=== PATIENT | female | born 1940 | race Caucasian/White ===

== ENCOUNTER → 2016-07-03 | Outpatient (CLI) | payer MEDICARE, BC ==
[2016-07-03 10:31] VITALS: BP 128/86; PULSE 68; RESP 20; TEMP 97.6; BMI 36.8
--- NOTE | 2016-07-03 14:08 | XR ---
"Abdomen HISTORY: Pain Correlation to prior esophagram July Lap band is showing a similar orientation with a transverse orientation. There is no pneumoperitoneum or bowel obstruction evident. Bone mineralization is reduced. Lung bases are clear. Postop change no fortino in the right lower quadrant. IMPRESSION: Transverse orientation of the lap band, correlate for symptomatology, possible lap band d isplacement. A Yellow message has been communicated to Corie Cook MD via the Vascular Closure | Critical Re sult system on 07/03/2016 2:05 PM, Message ID [id number]."
--- NOTE | 2016-07-03 14:13 | XR ---
EXAMINATION TYPE: XR chest 1V DATE OF EXAM: 07/03/2016 11:40 AM COMPARISON: Abdomen same date HISTORY: Pain TECHNIQUE: Single frontal view of the chest is obtained. FINDINGS: Lap band shows a transverse orientation. Patient is rotated. No pneumonia, pneumothorax, o r pleural effusion. Linear area of increased density in the right mid lung laterally may reflect atel ectasis or scar. Bone mineralization is reduced. IMPRESSION: Probable atelectasis or scar, follow-up to assess for stability versus resolution.
--- NOTE | 2016-07-08 10:02 | P.PN ---
Progress Note - Text Spoke with patient regarding results of Xrays and band/port malposition. Patient complains of pain from her band and port. Benefits and risks described of options of band revision and removal. Patient wishes to proceed with removal of band and all components. She will hold her coumadin today as she is also following closely with her poultry sexer.
--- NOTE | 2016-07-13 20:32 | P.PN ---
Progress Note - Text DATE OF CONSULTATION: 07/03/2016. CHIEF COMPLAINT: Bariatric assessment. HISTORY OF PRESENT ILLNESS: Marci Nunes is a 76-year-old female who actually comes in having an adjustable gastric band. Her family including had her band placed in 2009. At her height of 5 feet 3 inches, her ideal body weight is 140 pounds. She had weighed as much as 237 pounds. Her lowest weight with the band was 180 pounds. She has maintained a 30 pound weight loss. Current weight of 207 pounds. However, she has gained 18 pounds in the last 2 to 3 years. She now presents for assessment of her port. Separately she reports that she does not drink much fluids at all. Her foods includes for dinner she had coffee, toast and raisin bran. For lunch she had sandwiches. She denies any troubles with swallowing. Again her last band fill was one year ago where 8+ mL was fluid in her band. She was recently placed on Zoloft. She is taking Pepcid. Separately, she also came off her Coumadin and amiodarone for underlying, heart arrhythmia. She reports pain from her port site at its location underneath her ribs. She also reports moderate decrease of her height from 5 foot 6 to 5 foot 3 from kyphosis of the spine which also makes it difficult for her port location. PAST MEDICAL HISTORY: 1. Osteoporosis. 2. Cardiomyopathy. 3. Cardiac arrhythmia. 4. Hypertension. 5. Gastroesophageal reflux disease. 6. Vitamin D deficiency. 7. Atrial fibrillation. PAST SURGICAL HISTORY: 1. Appendectomy. 2. Placement adjustable gastric band. MEDICATIONS: 1. Coumadin. 2. Zoloft. 3. Klor-Con. 4. Multivitamin. 5. Lopressor. 6. Zestoretic. 7. Pepcid. 8. Vitamin D. 9. Calcium. 10. Aspirin. 11. Amiodarone. ALLERGIES: Denies. SOCIAL HISTORY: She is with her at bedside. No recent tobacco use. FAMILY HISTORY: History of morbid obesity throughout including with her daughters. REVIEW OF ORGAN SYSTEMS: CONSTITUTIONAL: Highest weight of 237 pounds, 5 foot 3 frame. Her ideal body weight of 140 pounds. Lowest weight of 180 pounds. She has already gained 18 pounds. Total maintained weight loss of 30 pounds. Body mass index reduced from 42 down to 36.8. BMI point reduction is only 5. Percent excess weight loss is only 31%. Weight of 207 pounds. HEENT: No troubles with hearing, troubles with vision. No reports of dysphagia. ENDOCRINE: No reports of thyroid disorders or blood sugar, glucose intolerance. Lymphatics denies any lumps or bumps around the neck. CARDIOVASCULAR: History of cardiac arrhythmia, atrial fibrillation for which she is pending ablation. No recent chest pain. RESPIRATORY: No reports of dyspnea on exertion. Denies any acute or active sleep apnea. GASTROINTESTINAL: Denies any gastroesophageal reflux disease. However, her symptoms were controlled using Pepcid. She does report pain from her port site of the left upper quadrant. MUSCULOSKELETAL: No clubbing, cyanosis or edema. NEUROLOGICAL: Cranial nerves II through XII grossly intact. PSYCH: Appropriate affect. Alert and oriented to person, place, and time. PHYSICAL EXAM: VITAL SIGNS: 97.6, 16, 21, 120/86, 5 foot 3 and 207 pounds, body mass index of 36.8. Body mass index is 36.8. GENERAL: Well-developed, pleasant female, no acute distress. HEENT: No scleral icterus. Extraocular movements grossly intact. Moist buccal mucosa. NECK: Supple without lymphadenopathy. CHEST: Nonlabored respirations. Equal bilateral excursions. CARDIOVASCULAR: Regular rate and rhythm. ABDOMEN: Soft with tenderness noted along the port site of the left upper quadrant. No erythema or skin changes. MUSCULOSKELETAL: No clubbing, cyanosis, or edema. NEURO: No focal or lateralizing signs. Cranial nerves II through XII grossly within normal limits. PSYCH: Appropriate affect. BACK: Spinal kyphosis moderate identified. ASSESSMENT: 1. Morbid obesity due to excess calories. 2. Body mass index reduced from 42 down to 36.8. 3. History of adjustable gastric band. 4. Complications from adjustable gastric band port. 5. Left upper quadrant abdominal pain. 6. History of atrial fibrillation. 7. Dietary surveillance and counseling. PLAN: 1. I have gone over her dietary eating habits which is moderate carbohydrates with minimal protein. 2. She reports poor oral intake of fluids or even water which puts her at risk for dehydration. 3. With her weight gain, recommend adjustment of her band. 4. Recommend evaluation with bariatric dietitian including re-education of lap band diet. I have gone over with her that fluids should not be drank within 30 minutes before and after meals to minimize risk for washout of her pouch to which she demonstrated understanding. 5. Options of band adjustments and/or port repositioning was reviewed for which she has elected for reposition of her band port upon evaluation with her railroad car cleaning supervisor. PROCEDURE: Adjustment of gastric band. DESCRIPTION: After verbal consent was obtained, the patient was placed supine. Using ChloraPrep the left upper quadrant port site was cleansed. The skin was localized with 1 mL of 1% Xylocaine. Using a 20-gauge non-coring Lewis needle, the actual port was found almost directly underneath the left costal margin of the rib which makes it difficult for at least 2 separate passes of the port. Port was not successfully cannulated. Given location of the port including tenderness along the rib cage, the patient elected for reposition of her band port at a later time.
== END | disposition home or self-care (01) ==
LOC: BARWHC3 09:29
PROVIDERS: ATTEND Surgery Plastic and Reconstructive Surgery
DX: Z48.815 Encounter for surgical aftercare following surgery on the digestive system (principal); Z98.84 Bariatric surgery status; Z68.36 Body mass index [BMI] 36.0-36.9, adult; T85.598A Other mechanical complication of other gastrointestinal prosthetic devices, implants and grafts, initial encounter; R10.12 Left upper quadrant pain; I48.91 Unspecified atrial fibrillation; M40.299 Other kyphosis, site unspecified; Z79.899 Other long term (current) drug therapy
CPT/HCPCS: 71010; 74000; G0463; 99202

== ENCOUNTER 2016-07-14 13:20 | Inpatient (IN) | payer MEDICARE, BC ==
--- NOTE | 2016-07-14 06:53 | P.GSHP ---
History of Present Illness H&P Date: 07/14/16 DATE OF CONSULTATION: 07/03/2016. CHIEF COMPLAINT: Bariatric assessment. HISTORY OF PRESENT ILLNESS: Marci Nunes is a 76-year-old female who actually comes in having an adjustable gastric band. Her family including had her band placed in 2009. At her height of 5 feet 3 inches, her ideal body weight is 140 pounds. She had weighed as much as 237 pounds. Her lowest weight with the band was 180 pounds. She has maintained a 30 pound weight loss. Current weight of 207 pounds. However, she has gained 18 pounds in the last 2 to 3 years. She now presents for assessment of her port. Separately she reports that she does not drink much fluids at all. Her foods includes for dinner she had coffee, toast and raisin bran. For lunch she had sandwiches. She denies any troubles with swallowing. Again her last band fill was one year ago where 8+ mL was fluid in her band. She was recently placed on Zoloft. She is taking Pepcid. Separately, she also came off her Coumadin and amiodarone for underlying, heart arrhythmia. She reports pain from her port site at its location underneath her ribs. She also reports moderate decrease of her height from 5 foot 6 to 5 foot 3 from kyphosis of the spine which also makes it difficult for her port location. PAST MEDICAL HISTORY: 1. Osteoporosis. 2. Cardiomyopathy. 3. Cardiac arrhythmia. 4. Hypertension. 5. Gastroesophageal reflux disease. 6. Vitamin D deficiency. 7. Atrial fibrillation. PAST SURGICAL HISTORY: 1. Appendectomy. 2. Placement adjustable gastric band. MEDICATIONS: 1. Coumadin. 2. Zoloft. 3. Klor-Con. 4. Multivitamin. 5. Lopressor. 6. Zestoretic. 7. Pepcid. 8. Vitamin D. 9. Calcium. 10. Aspirin. 11. Amiodarone. ALLERGIES: Denies. SOCIAL HISTORY: She is with her at bedside. No recent tobacco use. FAMILY HISTORY: History of morbid obesity throughout including with her daughters. REVIEW OF ORGAN SYSTEMS: CONSTITUTIONAL: Highest weight of 237 pounds, 5 foot 3 frame. Her ideal body weight of 140 pounds. Lowest weight of 180 pounds. She has already gained 18 pounds. Total maintained weight loss of 30 pounds. Body mass index reduced from 42 down to 36.8. BMI point reduction is only 5. Percent excess weight loss is only 31%. Weight of 207 pounds. HEENT: No troubles with hearing, troubles with vision. No reports of dysphagia. ENDOCRINE: No reports of thyroid disorders or blood sugar, glucose intolerance. Lymphatics denies any lumps or bumps around the neck. CARDIOVASCULAR: History of cardiac arrhythmia, atrial fibrillation for which she is pending ablation. No recent chest pain. RESPIRATORY: No reports of dyspnea on exertion. Denies any acute or active sleep apnea. GASTROINTESTINAL: Denies any gastroesophageal reflux disease. However, her symptoms were controlled using Pepcid. She does report pain from her port site of the left upper quadrant. MUSCULOSKELETAL: No clubbing, cyanosis or edema. NEUROLOGICAL: Cranial nerves II through XII grossly intact. PSYCH: Appropriate affect. Alert and oriented to person, place, and time. PHYSICAL EXAM: VITAL SIGNS: 97.6, 16, 21, 120/86, 5 foot 3 and 207 pounds, body mass index of 36.8. Body mass index is 36.8. GENERAL: Well-developed, pleasant female, no acute distress. HEENT: No scleral icterus. Extraocular movements grossly intact. Moist buccal mucosa. NECK: Supple without lymphadenopathy. CHEST: Nonlabored respirations. Equal bilateral excursions. CARDIOVASCULAR: Regular rate and rhythm. ABDOMEN: Soft with tenderness noted along the port site of the left upper quadrant. No erythema or skin changes. MUSCULOSKELETAL: No clubbing, cyanosis, or edema. NEURO: No focal or lateralizing signs. Cranial nerves II through XII grossly within normal limits. PSYCH: Appropriate affect. BACK: Spinal kyphosis moderate identified. ASSESSMENT: 1. Morbid obesity due to excess calories. 2. Body mass index reduced from 42 down to 36.8. 3. History of adjustable gastric band. 4. Complications from adjustable gastric band port. 5. Left upper quadrant abdominal pain. 6. History of atrial fibrillation. 7. Dietary surveillance and counseling. PLAN: 1. I have gone over her dietary eating habits which is moderate carbohydrates with minimal protein. 2. She reports poor oral intake of fluids or even water which puts her at risk for dehydration. 3. With her weight gain, recommend adjustment of her band. 4. Recommend evaluation with bariatric dietitian including re-education of lap band diet. I have gone over with her that fluids should not be drank within 30 minutes before and after meals to minimize risk for washout of her pouch to which she demonstrated understanding. 5. Options of band adjustments and/or port repositioning was reviewed for which she has elected for reposition of her band port upon evaluation with her cushion former. ADDENDUM: I spoke with patient regarding results of Xrays and band/port malposition. Patient complains of pain from her band and port. Benefits and risks described of options of band revision and removal. Patient wishes to proceed with removal of band and all components. She has held coumadin and followed closely with her cushion former. Past Medical History Past Medical History: Atrial Fibrillation History of Any Multi-Drug Resistant Organisms: None Reported Past Surgical History: Appendectomy, Bariatric Surgery, Heart Catheterization, Orthopedic Surgery Additional Past Surgical History / Comment(s): LAP BAND, CARDIOVERSION, ARTHROSCOPY KNEE, EFREN CARPAL TUNNEL, TRIGGER FINGER, LEFT BREAST BX, D&C Past Anesthesia/Blood Transfusion Reactions: No Reported Reaction Past Psychological History: No Psychological Hx Reported Smoking Status: Never smoker Past Alcohol Use History: None Reported Past Drug Use History: None Reported - Past Family History Son(s) Family Medical History: Deep Vein Thrombosis (DVT) Medications and Allergies Home Medications Medication Instructions Recorded Confirmed Type Amiodarone [Cordarone] 100 mg PO HS 07/02/16 07/09/16 History Aspirin 81 mg PO DAILY 07/02/16 07/09/16 History Calcium Citrate 250 mg PO DAILY 07/02/16 07/09/16 History Cholecalciferol [Vitamin D3] 1,000 unit PO DAILY 07/02/16 07/09/16 History Famotidine [Pepcid] 20 mg PO DAILY 07/02/16 07/09/16 History Lisinopril-Hctz 20-12.5 mg 1 tab PO DAILY 07/02/16 07/09/16 History [Zestoretic 20-12.5] Metoprolol Tartrate [Lopressor] 50 mg PO QAM 07/02/16 07/09/16 History Multivitamins, Thera [Multivitamin] 1 tab PO DAILY 07/02/16 07/09/16 History Potassium Chloride [Klor-Con 10 meq PO DAILY 07/02/16 07/09/16 History Sprinkle] Warfarin [Coumadin] 5 mg PO DAILY 07/02/16 07/09/16 History Metoprolol Tartrate [Lopressor] 25 mg PO HS 07/09/16 07/09/16 History Allergies Allergy/AdvReac Type Severity Reaction Status Date / Time No Known Allergies Allergy Verified 07/09/16 14:50
[~2016-07-14 13:20] MED LIST: HEPARIN SODIUM,PORCINE 5,000 UNIT/ML 1 ML VIAL SQ ONE; HYDROmorphone 1 MG/ML 1 ML SYRINGE IVP PRN; MIDAZOLAM 2 MG/2 ML VIAL IV PRN; ONDANSETRON 4 MG/2 ML VIAL IVP ONE; ceFAZolin 2 GM in SODIUM CHLORIDE 0.9% 100 ML IVPB ONE
[2016-07-14 13:50] VITALS: RESP 16
[2016-07-14] MEDS: LACTATED RINGERS 1,000 ML IV SCH (14:07)
[2016-07-14] MEDS ORDERED: HEPARIN SODIUM,PORCINE 5,000 UNIT/ML 1 ML VIAL SQ ONE (14:08)
[2016-07-14] MEDS ORDERED: LIDOCAINE 1% 20 ML VIAL (10MG/ML) FOR IV START INTRADERMA ONE (14:08)
[2016-07-14 14:25] LABS: Basophils % (A) 1 %; CH 33.8; CHCM 34.2; Eosinophils # (A) 0.1 k/uL (0-0.7); Eosinophils % (A) 2 %; HCT 43.8 % (34.0-46.0); HDW 2.51; HGB 14.7 gm/dL (11.4-16.0); Luc # (Auto) 0.09; Luc % (Auto) 2; Lymphocytes # (A) 1.2 k/uL (1.0-4.8); Lymphocytes % (A) 24 %; MCH 33.4 pg (25.0-35.0); MCHC 33.5 g/dL (31.0-37.0); MCV 99.5 fL (80.0-100.0); Mean Platelet Volume 8.1; Monocytes # (A) 0.4 k/uL (0-1.0); Monocytes % (A) 9 %; Neutrophils # (A) 3.1 k/uL (1.3-7.7); Neutrophils % (A) 63 %; RDW 14.1 % (11.5-15.5); WBC 4.9 k/uL (3.8-10.6)
[2016-07-14 14:29] LABS: INR 1.3 (<1.1); Prothrombin Time 12.4 sec (9.0-12.0)
[2016-07-14 14:36] LABS: Anion Gap 13 mmol/L; Blood Urea Nitrogen 20 mg/dL (7-17); Calcium 9.6 mg/dL (8.4-10.2); Carbon Dioxide 24 mmol/L (22-30); Chloride 106 mmol/L (98-107); Glucose 106 mg/dL (74-99); Non-African American GFR(MDRD) 50 (>60 ml/min/1.73 sqM); Potassium 4.3 mmol/L (3.5-5.1); Sodium 143 mmol/L (137-145)
[2016-07-14] MEDS ORDERED: ACETAMINOPHEN IV (For NPO) 1,000 MG in EMPTY BAG 1 BAG IVPB ONE (15:00)
[2016-07-14] MEDS: BUPIVACAINE LIPOSOME/PF 1.3% 20 ML, BUPIVACAIN-EPI 0.5%-1:200,000 25 ML, SODIUM CHLORID... MISCELLANE ONE ×6 (15:22→15:57)
[2016-07-14] MEDS ORDERED: SUCCINYLCHOLINE CHLORIDE 100 MG/5 ML SYR IV ONE (15:29)
[2016-07-14] MEDS ORDERED: ePHEDrine 50 MG/ML 1 ML AMP ONE (15:29)
[2016-07-14] MEDS ORDERED: GLYCOPYRROLATE 0.2 MG/ML 2 ML VIAL ONE (15:29)
[2016-07-14] MEDS ORDERED: fentaNYL (PF) 50 MCG/ML 2 ML AMP ONE (15:29)
[2016-07-14] MEDS ORDERED: MIDAZOLAM 2 MG/2 ML VIAL ONE (15:29)
[2016-07-14] MEDS ORDERED: NEOSTIGMINE 1 MG/ML 10 ML VIAL ONE (15:29)
[2016-07-14] MEDS ORDERED: HYDROmorphone (PF) 1 MG/ML ONE (15:29)
[2016-07-14] MEDS ORDERED: PHENYLEPHRINE-0.9% NACL SYG 1 MG/10 ML SYRINGE ONE (15:29)
[2016-07-14] MEDS ORDERED: PROPOFOL 10 MG/ML 20 ML VIAL IV ONE (15:29)
[2016-07-14] MEDS ORDERED: LIDOCAINE 1% INJ 10MG/ML (20 ML MDV) ONE (15:29)
[2016-07-14] MEDS ORDERED: VECURONIUM 10 MG VIAL IV ONE (15:29)
[2016-07-14] MEDS ORDERED: LACTATED RINGERS 1,000 ML IV ONE (16:04)
[2016-07-14] MEDS ORDERED: ONDANSETRON 4 MG/2 ML VIAL IVP PRN (16:55)
[2016-07-14] MEDS ORDERED: HYDROcodone/APAP 15 ML SOLUTION PO PRN (16:55)
[2016-07-14] MEDS ORDERED: NALOXONE 0.4 MG/ML 1 ML VIAL IV PRN (16:55)
[2016-07-14] MEDS ORDERED: HYDROmorphone 1 MG/ML 1 ML SYRINGE IVP PRN (16:55)
--- NOTE | 2016-07-14 16:55 | P.OP ---
Date of Procedure: 07/14/16 Description of Procedure: SURGEON: NGA HUTCHINSON MD CELL INSTALLER: NONE. PREOPERATIVE DIAGNOSES: 1. Morbid obesity due to excess calories. 2. Body mass index reduced from 42 down to 36.8. 3. History of adjustable gastric band. 4. Complications from adjustable gastric band port. 5. Left upper quadrant abdominal pain. 6. History of atrial fibrillation. 7. Dietary surveillance and counseling. 8. Gastric port malposition. 9. Gastric band malposition. POSTOPERATIVE DIAGNOSES: 1. Morbid obesity due to excess calories. 2. Body mass index reduced from 42 down to 36.8. 3. History of adjustable gastric band. 4. Complications from adjustable gastric band port. 5. Left upper quadrant abdominal pain. 6. History of atrial fibrillation. 7. Dietary surveillance and counseling. 8. Gastric port malposition. 9. Gastric band malposition. 10. Posterior gastric prolapse of gastric band. 11. Adjustable gastric band port malfunction with early fracture and malfunction of adjustable gastric band port. 12. Gastritis, superficial. OPERATION: 1. Laparoscopic removal of adjustable gastric band and all components. 2. Intraoperative esophagogastroduodenoscopy with cold forceps biopsies along antrum. 3. Placement of quarter inch [place] drain along port extraction site. ANESTHESIA: General with 85 mL Exparel Sensorcaine with epinephrine and normal saline mixture. ESTIMATED BLOOD LOSS: 20 mL SPECIMENS REMOVED: Adjustable gastric band and components. COMPLICATIONS: None. INDICATIONS: The patient is a 76-year-old female who presents with prior history of adjustable gastric band. She reports left upper quadrant abdominal pain from her adjustable gastric port site with persistent rubbing along the left rib. She had studies including abdominal x-ray demonstrating acute change in angulation of her band as well as she was symptomatic. 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 Surgical options were described including revision versus removal of her band. As she has persistent pain and discomfort from her band, she had elected for removal of the adjustable gastric band and port including all components. Benefits and risks of the procedure were described. Informed consent was obtained. DESCRIPTION: The patient was brought into the operating room and laid in supine position. Preoperatively she had received Peridex oral solution. Shad also gotten heparin. Patient was brought into the operating room, transferred a split-leg table. After general induction, which was uncomplicated, the abdomen was prepped and draped in standard sterile fashion. The abdomen was prepped and draped in standard sterile fashion using ChloraPrep as well as Ioban draping. Prior to incision, a timeout protocol was confirmed with the surgical team regarding patient's name, procedure to be performed, including preoperative medications. A transverse incision was made approximately 15 cm distal to the xiphoid off to the left of the midline from his prior cicatrix. A 0 degree 5 mm trocar entry was performed and entered into the peritoneal cavity. The abdomen was insufflated to 15 mmHg pressure, which she tolerated well. Diagnostic laparoscopy demonstrated no hepatomegaly or fatty liver disease. The port was palpated at the lateral left costal margin and the band was found underneath the liver. A 15 mm port was placed along the left costal margin. Next a 5 mm port was placed at the left midclavicular line. A Delores liver retractor was placed into the abdominal cavity and used to elevate the left lobe of the liver. The liver retractor was held in place using an iron intelligence intern. The patient was placed in steep reverse Trendelenburg position. The port was followed with its tubing to the actual band. The gastrohepatic ligament was actually scarred from her prior surgery. The posterior portion of the stomach was prolapsed around the ALLERGAN band. Using electro- Bovie cautery, the cicatrix of the port was incised. The band was then freed. The band was unbuckled and cut. The tubing was cut approximately 5 cm distal to the actual adapter. The band was removed in total without injury to the stomach. Hemostasis was excellent. The port was removed from the abdominal cavity via the 15 mm port. Next, attention was brought to the abdominal wall where the lap band port was palpated. At the midclavicular trocar incision, the incision was extended laterally with a #11 blade. Skin was localized with anesthetic. Electro -Bovie cautery was used to enter the capsule around the port. The sutures were cut and the port was removed in total along with the tubing. The port was found migrating underneath the left rib and tunneled which required additional maneuvering to remove the port in total. Diagnostic laparoscopy demonstrated complete removal of all foreign body. I then went to the head of the bed to perform intraoperative esophagogastroduodenoscopy to evaluate for gastritis and any full thickness injury to the stomach. An Olympus gastroscope was passed from the posterior oropharynx down to the esophagus, where the squamocolumnar junction was found LA grade A erosive esophagitis, chronic changes. The stomach was entered and bile reflux was found of 100 mL. Chronic gastritis was found along the antrum without gastric ulcers or duodenitis or duodenal ulcers. Retroflexion of the scope confirmed a Hill grade 2 lower esophageal valve. No full-thickness erosion from the prior band was encountered. No blood was found within the stomach. Mild gastritis with identified and cold forceps biopsies obtained along the antrum. The stomach was desufflated. The patient tolerated the procedure well. Again, no evidence of leak was encountered from the removal of the band. I then went back to the patient's bedside after re-scrubbing. All instruments and pneumoperitoneum were evacuated from the abdominal cavity. The port extraction site was hemostatic. The port site was irrigated using normal saline and hydrogen peroxide approximately, 50 mL. The skin was closed in layers using 0-Vicryl for the deep dermis and subcutaneous tissue. A quarter-inch [place] drain was placed along the port extraction site. The 15 mm port fascia was less than 8 mm in size. The rest of the incisions were reapproximated using 4-0 Monocryl in a subcuticular interrupted fashion. Optifoam dressing was placed over the port extraction site along the left upper quadrant to decrease risk for surgical site infection. At the end of the procedure, needle, sponge and instrument count was verified correct by the cardiovascular surgical tech. The patient had tolerated the procedure well. An abdominal binder was placed. The patient was transferred to Postanesthesia Care Unit in stable condition. Postoperative findings were discussed with the patient's family who were pleased with the level of care. FINDINGS: 1. Posterior gastric prolapse. 2. LA grade A erosive esophagitis chronic. 3. Hill grade 2 lower esophageal valve. 4. Peritoneal adhesions, lower midline from previous surgery. 5. Fracture of gastric port and tubing from acute angulation along the left inferior rib. 6. Port migration under left rib with chronic irritation found along the left upper abdomen.
[2016-07-14] MEDS: SODIUM CHLORIDE 0.9% 1,000 ML IV SCH (18:28)
[2016-07-14] MEDS: ALBUTEROL NEBULIZED 2.5 MG/3 ML INHALATION SCH (19:19)
[2016-07-14] MEDS ORDERED: METOPROLOL TARTRATE 25 MG TAB PO SCH (21:00)
--- NOTE | 2016-07-14 21:07 | P.PN ---
Progress Note - Text Patient is clinically doing well. Her pain is well-controlled. Anticipated disposition home tomorrow.
[2016-07-15] MEDS: SODIUM CHLORIDE 0.9% 1,000 ML IV SCH (04:53)
[2016-07-15] MEDS: LACTATED RINGERS 1,000 ML IV SCH (05:37)
[2016-07-15] MEDS: ALBUTEROL NEBULIZED 2.5 MG/3 ML INHALATION SCH ×2 (07:54→12:44)
[2016-07-15] MEDS ORDERED: METOPROLOL TARTRATE 50 MG TAB PO SCH (09:00)
[2016-07-15] MEDS ORDERED: ASPIRIN 81 MG CHEW PO SCH (09:00)
[2016-07-15] MEDS ORDERED: WARFARIN 5 MG TAB PO SCH (09:00)
[2016-07-15] MEDS ORDERED: PANTOPRAZOLE 40 MG/10 ML VIAL IV SCH (09:00)
[2016-07-15] MEDS ORDERED: LISINOPRIL-HCTZ 20-12.5 MG 1 EACH TAB PO SCH (09:00)
[2016-07-15] MEDS ORDERED: POTASSIUM CHLORIDE ER 10 MEQ TAB.ER.PRT PO SCH (09:00)
[2016-07-15 09:07] VITALS: TEMP 97.8
[2016-07-15 14:18] VITALS: BP 119/70; PULSE 57
[2016-07-15 14:29] VITALS: BMI 35.7
--- NOTE | 2016-07-15 20:46 | P.PN ---
Progress Note - Text Patient contacted at home. She is doing very well. Discharge instructions were reviewed which she demonstrated understanding. She will notify the bariatric center for any issues.
--- NOTE | 2016-07-15 20:48 | P.DS ---
Providers Date of admission: 07/14/16 13:20 Expected date of discharge: 07/15/16 Attending physician: Corie Cook Primary care physician: Stated None - Discharge Diagnosis(es) (1) Morbid obesity due to excess calories Status: Chronic (2) BMI 35.0-35.9,adult Status: Chronic (3) Hx of laparoscopic adjustable gastric banding Status: Chronic (4) Other complications of gastric band procedure Status: Acute (5) Gastric prolapse Status: Acute (6) Atrial fibrillation Status: Chronic (7) Chronic anticoagulation Status: Chronic (8) Dietary surveillance and counseling Status: Acute (9) Hypertensive cardiomyopathy Status: Chronic (10) Left upper quadrant pain Status: Chronic Hospital Course: POSTOPERATIVE DIAGNOSES: 1. Morbid obesity due to excess calories. 2. Body mass index reduced from 42 down to 36.8. 3. History of adjustable gastric band. 4. Complications from adjustable gastric band port. 5. Left upper quadrant abdominal pain. 6. History of atrial fibrillation. 7. Dietary surveillance and counseling. 8. Gastric port malposition. 9. Gastric band malposition. 10. Posterior gastric prolapse of gastric band. 11. Adjustable gastric band port malfunction with early fracture and malfunction of adjustable gastric band port. 12. Gastritis, superficial. COURSE: The patient is a 76-year-old female who presents with prior history of adjustable gastric band. She reports left upper quadrant abdominal pain from her adjustable gastric port site with persistent rubbing along the left rib. She had studies including abdominal x-ray demonstrating acute change in angulation of her band as well as she was symptomatic. 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 Surgical options were described including revision versus removal of her band. As she has persistent pain and discomfort from her band, she had elected for removal of the adjustable gastric band and port including all components. Benefits and risks of the procedure were described. Postoperatively, her pain was controlled. An abdominal binder was placed. Discharge instructions were reviewed. Prior to discharge, she was stable. Procedures: OPERATION: 1. Laparoscopic removal of adjustable gastric band and all components. 2. Intraoperative esophagogastroduodenoscopy with cold forceps biopsies along antrum. 3. Placement of quarter inch Natalio drain along port extraction site. Patient Condition at Discharge: Stable Plan - Discharge Summary New Discharge Prescriptions: Hydrocodone/Acetaminophen [[place] 5-325] 1 - 2 each PO Q6HR PRN #40 tab PRN Reason: Pain Discharge Medication List Amiodarone [Cordarone] 100 mg PO HS 07/02/16 [History] Aspirin 81 mg PO DAILY 07/02/16 [History] Calcium Citrate 250 mg PO DAILY 07/02/16 [History] Cholecalciferol [Vitamin D3] 1,000 unit PO DAILY 07/02/16 [History] Famotidine [Pepcid] 20 mg PO DAILY 07/02/16 [History] Lisinopril-Hctz 20-12.5 mg [Zestoretic 20-12.5] 1 tab PO DAILY 07/02/16 [History ] Metoprolol Tartrate [Lopressor] 50 mg PO QAM 07/02/16 [History] Multivitamins, Thera [Multivitamin] 1 tab PO DAILY 07/02/16 [History] Potassium Chloride [Klor-Con Sprinkle] 10 meq PO DAILY 07/02/16 [History] Warfarin [Coumadin] 5 mg PO DAILY 07/02/16 [History] Metoprolol Tartrate [Lopressor] 25 mg PO HS 07/09/16 [History] Hydrocodone/Acetaminophen [[place] 5-325] 1 - 2 each PO Q6HR PRN #40 tab 07/14/16 [Rx] Follow up Appointment(s)/Referral(s): Corie Cook MD [STAFF PHYSICIAN] - 07/23/16 1:00 pm (Bariatric center) Patient Instructions/Handouts: Adjustable Gastric Band Removal (DC), Abdominal Binder (GEN), Hydrocodone/Acetaminophen (By mouth) Activity/Diet/Wound Care/Special Instructions: No lifting over 4 pounds in 4 weeks. Follow-up at the bariatric center. Discharge Disposition: HOME SELF-CARE
== END 2016-07-15 16:34 | disposition home or self-care (01) | DRG 988 ==
LOC: 2ORWHC 13:20 → 3SUR 16:50
PROVIDERS: ADMIT Surgery Plastic and Reconstructive Surgery; ATTEND Surgery Plastic and Reconstructive Surgery
PROC: 0DB68ZX Excision of Stomach, Via Natural or Artificial Opening Endoscopic, Diagnostic (ICD-10-PCS; 2016-07-14)
PROC: 0DP64CZ Removal of Extraluminal Device from Stomach, Percutaneous Endoscopic Approach (ICD-10-PCS; principal; 2016-07-14 15:15)
DX: K95.09 Other complications of gastric band procedure (principal); I43 Cardiomyopathy in diseases classified elsewhere; E66.01 Morbid (severe) obesity due to excess calories; I11.9 Hypertensive heart disease without heart failure; I48.91 Unspecified atrial fibrillation; T85.528A Displacement of other gastrointestinal prosthetic devices, implants and grafts, initial encounter; K22.10 Ulcer of esophagus without bleeding; Z68.35 Body mass index [BMI] 35.0-35.9, adult; E55.9 Vitamin D deficiency, unspecified; R10.12 Left upper quadrant pain; K29.50 Unspecified chronic gastritis without bleeding; M40.209 Unspecified kyphosis, site unspecified; K21.9 Gastro-esophageal reflux disease without esophagitis; K66.0 Peritoneal adhesions (postprocedural) (postinfection); M81.0 Age-related osteoporosis without current pathological fracture; Z79.82 Long term (current) use of aspirin; Z79.01 Long term (current) use of anticoagulants; Z79.899 Other long term (current) drug therapy; Z90.49 Acquired absence of other specified parts of digestive tract; Z83.49 Family history of other endocrine, nutritional and metabolic diseases; Z71.3 Dietary counseling and surveillance; Z82.49 Family history of ischemic heart disease and other diseases of the circulatory system; Y83.1 Surgical operation with implant of artificial internal device as the cause of abnormal reaction of the patient, or of later complication, without mention of misadventure at the time of the procedure
CPT/HCPCS: 80048; 83735; 85025; 85610; 88305; 88342

== ENCOUNTER → 2016-07-23 | Outpatient (CLI) | payer MEDICARE, BC ==
[2016-07-23 14:04] VITALS: BP 156/73; PULSE 72; RESP 16; TEMP 98.1; BMI 36.2
--- NOTE | 2016-07-27 16:28 | P.PN ---
Progress Note - Text DATE OF SERVICE: 07/23/2016 CHIEF COMPLAINT: Followup, band removal. HISTORY OF PRESENT ILLNESS: Marci Nunes is a 76-year-old female with a previous history of adjustable gastric band performed in 2009. Her highest weight for her 5-foot 3-inch frame was 237 pounds. Her ideal body weight is 140 pounds. Today she comes in weighing 204 pounds. In approximately the past month she has actually lost 3 pounds. Her total maintained weight loss was 33 pounds. Body mass index has been reduced from 42.1 with an excess weight loss of 34%. She feels great, as she is able to eat. Additionally, her left upper quadrant pain is now resolved. No reports of fevers or chills. She is still 64 pounds overweight. PHYSICAL EXAM: VITAL SIGNS: 98.1, 72, 16, 156/75, 5 feet 3 inches, 240 pounds, body mass index 36.2. ABDOMEN: Lowell drain was discontinued. No signs of infection or cellulitis. Optifoam dressing along the left upper quadrant also removed. Tegaderm and 2 x 2 placed. GENERAL: Well-developed, pleasant female, no acute distress. HEENT: No scleral icterus. Extraocular movements grossly intact. Moist buccal mucosa. NECK: Supple without lymphadenopathy. CHEST: Nonlabored respirations. Equal bilateral excursions. CARDIOVASCULAR: Regular rate and rhythm. MUSCULOSKELETAL: No clubbing, cyanosis, or edema. NEURO: No focal or lateralizing signs. Cranial nerves II through XII grossly within normal limits. PSYCH: Appropriate affect. BACK: Spinal kyphosis moderate identified. ASSESSMENT: 1. History of complications from adjustable gastric band. 2. Morbid obesity due to excess calories. 3. Body mass index reduced from 42.1 to 36.2. 4. History of arrhythmia. 5. Left upper quadrant abdominal pain, resolved. 6. Dietary surveillance and counseling. PLAN: 1. Clinically she is doing well and is relatively stable. 2. At this time she has elected to undergo no additional surgical procedures. 3. I recommend followup at the [place] office in approximately 2 to 3 weeks. 4. I have asked her to follow up any time sooner if she has any further problems.
== END | disposition home or self-care (01) ==
LOC: BARWHC3 13:37
PROVIDERS: ATTEND Surgery Plastic and Reconstructive Surgery
DX: Z48.815 Encounter for surgical aftercare following surgery on the digestive system (principal); E66.01 Morbid (severe) obesity due to excess calories; Z68.36 Body mass index [BMI] 36.0-36.9, adult; I49.9 Cardiac arrhythmia, unspecified; K95.09 Other complications of gastric band procedure; Z98.84 Bariatric surgery status
CPT/HCPCS: 99211

== ENCOUNTER → 2020-04-04 | Outpatient (CLI) | payer MEDICARE ==
[2020-04-04 12:56] LABS: Basophils % (A) 1 %; Eosinophils # (A) 0.2 k/uL (0-0.7); Eosinophils % (A) 2 %; HCT 43.7 % (34.0-46.0); HGB 14.4 gm/dL (11.4-16.0); Lymphocytes # (A) 1.1 k/uL (1.0-4.8); Lymphocytes % (A) 18 %; MCH 34.1 pg (25.0-35.0); MCHC 32.9 g/dL (31.0-37.0); MCV 103.7 fL (80.0-100.0); Macrocytosis Slight; Mean Platelet Volume 7.8; Monocytes # (A) 0.5 k/uL (0-1.0); Monocytes % (A) 8 %; Neutrophils # (A) 4.2 k/uL (1.3-7.7); Neutrophils % (A) 70 %; Platelet Count 167 k/uL (150-450); RBC 4.21 m/uL (3.80-5.40); RDW 12.6 % (11.5-15.5)
[2020-04-04 13:12] LABS: Potassium 3.9 mmol/L (3.5-5.1)
== END | disposition home or self-care (01) ==
LOC: LABPAT 11:32
PROVIDERS: ATTEND Obstetrics & Gynecology
DX: Z01.818 Encounter for other preprocedural examination (principal); N81.4 Uterovaginal prolapse, unspecified
CPT/HCPCS: 80051; 82565; 84520; 85025; 86850; 86900; 86901

== ENCOUNTER 2020-04-10 06:12 | Day surgery (SDC) | payer MEDICARE, OTHER ==
[2020-04-04 15:29] VITALS: BMI 37.9
--- NOTE | 2020-04-09 11:51 | HP ---
HISTORY AND PHYSICAL DATE OF SURGERY: 04/10/2020 HISTORY OF PRESENT ILLNESS: The patient is a 80-year-old 4, para 4-0-0-4 patient who was initially sent on referral by Dr. James, for evaluation regarding pelvic organ prolapse. The patient reports that she felt as if something protruding from the vagina and the sensation has been increasing over the last 6 months. Prior to 6 months ago, she had not been symptomatic, but now reports increasing discomfort, pressure, and some difficulty with voiding or moving bowels. She does not need to splint at this point. She additionally reports that she has some mild incontinence, but the type is unclear. She has requested definitive therapy, after discussing options for treatment. PAST MEDICAL HISTORY: Significant for some degree of anxiety and depression. She additionally has arteriosclerotic heart disease, atrial fibrillation, cardiomyopathy, history of migraine headaches, hyperlipidemia, hypertension, obesity, some degree of peptic ulcer disease and a remote history of tuberculosis. PAST SURGICAL HISTORY: Significant for an appendectomy, breast biopsies on 2 separate occasions, cardiac catheterization, carpal tunnel release, D and C, knee surgery, and a lap band and then removal and reversal of the lap band, trigger finger release, and a tubal ligation. There has been no apparent anesthetic concerns. OBSTETRICAL HISTORY: 4, para 4-0-0-4 term vaginal deliveries without complications. GYNECOLOGIC HISTORY: Unremarkable except as noted in history of present illness. FAMILY HISTORY: Noncontributory. SOCIAL HISTORY: The patient is and retired. She is a nonsmoker and denies any significant alcohol or any other social concerns. CURRENT MEDICATIONS: Include aspirin 81 mg daily, atorvastatin 20 mg daily, calcium 3 times daily, Cardizem 30 mg daily. Hyzaar 50-12.5 mg daily, potassium 20 mEq daily, Lopressor 50 mg daily, multivitamin daily, naproxen sodium 275 mg as needed. Oxytrol patch twice weekly. Pepcid 20 mg daily, Zoloft 25 mg daily, vitamin D daily, Voltaren 1% topical gel as needed, and warfarin 5 mg, which she has stopped in advance of surgery. ALLERGIES: BETAPACE, DOXYCYCLINE, and PLAQUENIL. REVIEW OF SYSTEMS: Confined to history of present illness. PHYSICAL EXAMINATION: Vital signs are stable and the patient is afebrile. In general, this is a mild-to- moderately obese white female in no acute distress. Her heart has a regular rhythm and rate without murmur. Her lungs are clear to auscultation bilaterally in all luther. Her abdomen is nondistended, has normoactive bowel sounds, soft, nontender, and without any palpable masses, hepatosplenomegaly, or hernias. Her extremities are without any cyanosis, clubbing, or edema and are nontender to palpation bilaterally. Pelvic examination demonstrates normal external genitalia and BUS with normal vaginal mucosa and cervix. There is grade 3 uterine prolapse as well as cystocele present while the rectum appears to be well supported. The uterus is atrophic in size, mid plane, mobile, nontender, normal in shape. The adnexa are nonpalpable without any apparent masses bilaterally. ASSESSMENT AND PLAN: Grade 3 uterine prolapse with grade 3 cystocele, asymptomatic: We discussed the options for treatment as well as the findings at some length and the patient has requested surgical repair. As a result, she has had preoperative evaluation both by her primary care doctor as well as Cardiology, who have cleared her for surgery. Cardiology consultation will be obtained following the procedure. She is scheduled for vaginal hysterectomy with anterior repair and any potential indicated surgery should other findings be noted at the time of surgery. The risks and complications were discussed at length including the risks for bleeding, bleeding requiring transfusion, infection, and injury to local structures to include the bowel, bladder, and ureters. Discussed the typical hospital and postoperative courses and she has understood all this and agreed to proceed. Again, she will be seen by Cardiology in the postop. MMODL / IJN: [id number] /
[~2020-04-10 06:12] MED LIST changes: -HEPARIN SODIUM,PORCINE 5,000 UNIT/ML 1 ML VIAL SQ ONE; +HYDROmorphone 0.5 MG/0.5 ML SYRINGE IVP PRN; -HYDROmorphone 1 MG/ML 1 ML SYRINGE IVP PRN; +LACTATED RINGERS 1,000 ML IV SCH; +LIDOCAINE 1% (10MG/ML) FOR IV START INTRADERMA PRN; -MIDAZOLAM 2 MG/2 ML VIAL IV PRN; -ceFAZolin 2 GM in SODIUM CHLORIDE 0.9% 100 ML IVPB ONE
[2020-04-10 06:59] LABS: Appearance,Urine Turbid (Clear); Bacteria,Urine Moderate /hpf; Bilirubin,Urine Negative (Negative); Blood,Urine Trace (Negative); Color,Urine Yellow; Glucose,Urine (UA) Negative (Negative); Ketones,Urine Negative (Negative); Leukocyte Esterase,Urine Large (Negative); Mucus,Urine Rare /hpf; Nitrite,Urine Negative (Negative); PH, Urine 7.5 (5.0-8.0); Protein,Urine 1+ (Negative); RBC,Urine 2 /hpf (0-5); Specific Gravity,Urine 1.016 (1.001-1.035); Squamous Epithelial Cell,Urine 1 /hpf (0-4); Urobilinogen,Urine <2.0 mg/dL (<2.0); WBC,Urine >182 /hpf (0-5)
[2020-04-10 07:22] LABS: INR 1.3 (<1.2)
[2020-04-10] MEDS ORDERED: PROPOFOL 10 MG/ML 20 ML VIAL IV ONE (07:34)
[2020-04-10] MEDS ORDERED: LIDOCAINE 1% INJ 10MG/ML (20 ML MDV) ONE (07:34)
[2020-04-10] MEDS ORDERED: SUCCINYLCHOLINE CHLORIDE 100 MG/5 ML SYR IV ONE (07:34)
[2020-04-10] MEDS ORDERED: ePHEDrine SULFATE/0.9% NACL/PF 50 MG/5 ML SYRINGE IV ONE (07:34)
[2020-04-10] MEDS ORDERED: fentaNYL (PF) 50 MCG/ML 2 ML AMP ONE (07:34)
[2020-04-10] MEDS ORDERED: MIDAZOLAM 2 MG/2 ML VIAL ONE (07:34)
[2020-04-10] MEDS ORDERED: VASOPRESSIN 20 UNIT/ML 1 ML VIAL SQ ONE (07:57)
[2020-04-10] MEDS ORDERED: VASOPRESSIN 20 UNIT/ML 1 ML VIAL IV ONE (07:57)
[2020-04-10] MEDS ORDERED: BACITRACIN ZINC 500 UNIT/GM OINT 28.4 GM TUBE TOPICAL ONE ×3 (08:02→08:39)
[2020-04-10] MEDS ORDERED: Acetaminophen-Codeine 300-30mg TAB PO PRN (09:15)
[2020-04-10] MEDS ORDERED: METOCLOPRAMIDE 5 MG/ML 2 ML VIAL IVP PRN (09:15)
[2020-04-10] MEDS ORDERED: SIMETHICONE 80 MG CHEWABLE PO PRN (09:15)
[2020-04-10] MEDS ORDERED: KETOROLAC 15 MG/ML 1 ML VIAL IVP PRN (09:15)
[2020-04-10] MEDS ORDERED: diphenhydrAMINE 50 MG/ML 1 ML VIAL IVP PRN (09:15)
[2020-04-10] MEDS ORDERED: ONDANSETRON 4 MG/2 ML VIAL IVP PRN (09:15)
[2020-04-10] MEDS ORDERED: IBUPROFEN 600 MG TAB PO PRN (09:15)
--- NOTE | 2020-04-10 09:42 | P.OP ---
Date of Procedure: 04/10/20 Preoperative Diagnosis: #1. Symptomatic uterine prolapse, grade 3 #2. Symptomatic grade 3 cystocele #3. History of atrial fibrillation with anticoagulation Postoperative Diagnosis: Same Procedure(s) Performed: #1. Vaginal hysterectomy #2. Anterior colporrhaphy Anesthesia: HARPREET Surgeon: [employer] Associate #1: Jackelin Bowden Estimated Blood Loss (ml): 150 IV fluids (ml): 800 Urine output (ml): 550 Pathology: other (Uterus) Condition: stable Disposition: PACU Operative Findings: Gravid pelvic examination confirmed the findings with grade 3-3+ uterine prolapse and a grade 3 cystocele present. The rectum was well supported. The bilateral ovaries were seen and streak in nature with no evidence of pathology. Description of Procedure: The patient was prepped and draped in usual fashion after general endotracheal anesthesia was administered by the anesthesiologist. A weighted speculum was placed and the bladder drained of approximately 50 mL of clear hema urine. The anterior lip the cervix was grasped with a single-tooth tenaculum and the cervicovaginal mucosa infused with diluted vasopressin solution. It was then incised circumferentially with a scalpel and reflected distally both sharply and bluntly. The posterior peritoneum was ultimately identified and incised sharply the Newman scissors lying placement of a stitch of 2-0 Vicryl for later use for closure. The short weighted speculum was replaced the long weighted speculum. After further dissection of the mucosa, uterosacral ligaments were identified and clamped with a curved Ariana Colquitt clamp on each side, cut, and suture- ligated with a transfixion stitch of 0 Vicryl. Serial bites were taken up the cardinal ligament towards the utero-ovarian ligaments on each side using curved Rey-Colquitt clamps, always hugging the margin of the uterus. Each was cut and suture-ligated with a transfixion stitch of 0 Vicryl. After several bites on each side had been taken and the anterior peritoneum was identified, the uterus was inverted posteriorly allowing isolation of the utero-ovarian pedicles on each side. Each was clamped with a curved Rey-Colquitt clamp, cut, and suture-ligated with a transfixion stitch of 0 Vicryl followed by a free tie of 0 Vicryl. Hemostasis of all the pedicles appeared to be excellent. Any small points of bleeding noted between were made hemostatic with the Bovie. There was a moderate amount of bleeding from the vaginal cuff given the patient's recent anticoagulation and incomplete removal from it at this time. The ovaries were normal as noted above. Once hemostasis had been established on the pedicles, the long weighted speculum was replaced with the short weighted speculum and the previously placed stitch of 2-0 Vicryl was utilized to close the parietal peritoneum in a pursestring stitch. Any points of bleeding that could be made hemostatic with the Bovie were made so. The uterosacral ligaments were then passed through each other with a stitch of 0 Vicryl as well as the contralateral vaginal mucosa in a modified Lopes's culdoplasty. The intervening open posterior vaginal mucosa was closed with interrupted [id number] stitches of 0 Vicryl. One jjeigy-[id number] stitch was placed anteriorly but the most anterior portion left open and grasped with 2 Allis clamps. The vesicovaginal mucosa was infused with diluted vasopressin solution and undermined in the midline and divided. Allis clamps were placed along the margin of the dissection. The overlying mucosa was dissected both bluntly and sharply from the underlying tissues. Once adequate dissection had been carried out, the Vasquez catheter was placed and the bladder drained of approximately 500 mL of clear hema urine. Serial Soledad plication stitches were placed from the urethral apex with 2-0 PDS to the end of the dissection at the remaining open vaginal cuff. The excess mucosa was trimmed with Metzenbaum scissors and discarded. The vaginal mucosa was then closed with a running locking stitch of 2-0 Vicryl from the urethral apex to the apex of the vagina. The vagina was then packed with one-inch iodophor gauze covered with bacitracin ointment. Estimated blood loss for the entire case was approximately 150 mL. There were no complications. All sponge, instrument, and needle counts were correct. The patient tolerated the procedure well and proceeded to the recovery room in stable condition.
[2020-04-10] MEDS ORDERED: LACTATED RINGERS 1,000 ML IV ONE (09:50)
[2020-04-10] MEDS: LACTATED RINGERS 1,000 ML IV SCH ×2 (10:30→22:23)
[2020-04-10] MEDS: Acetaminophen-Codeine 300-30mg TAB PO PRN ×2 (11:16→17:07)
--- NOTE | 2020-04-10 13:42 | P.CRDCN ---
History of Present Illness History of present illness: HISTORY OF PRESENTING ILLNESS This is a pleasant 80-year-old female past medical history significant for chronic persistent atrial fibrillation s/p failed cardioversion, hypertension, dyslipidemia and urinary leakage. She follows in the office with Dr. Yen. We have been asked to see in consultation for anti-coagulation recommendations. She underwent vaginal hysterectomy and anterior colporrhaphy with Dr. Irving this morning. Her last date of taking coumadin was 04/04 and INR this morning was 1.3. She saw Dr. Yen 03/08/2020 as a new patient for pre- operative evaluation. At that time she underwent an echocardiogram revealing preserved LV systolic function with ejection fraction 55%, severely dilated left atrium, severely dilated right atrium and moderate mitral regurgitation. She also underwent a Lexiscan stress test that revealed normal perfusion and function with a fixed perfusion defect involving the apex probably secondary to soft tissue attenuation. She has seen and examined resting comfortably laying flat in bed in no acute distress. She denies symptoms of chest pain, shortness of breath, dizziness or palpitations. She states overall she just feels tired due to lack of sleep last night. Current daily cardiac medications aside from Coumadin include Lopressor 25 mg in the morning, aspirin 81 mg daily, diltiazem 30 mg at bedtime, atorvastatin 20 mg daily, daily potassium supplementation and losartan/HCTZ 50/12.5 mg twice a day. REVIEW OF SYSTEMS At the time of my exam: CONSTITUTIONAL: Denies fever or chills. CARDIOVASCULAR: Denies chest pain, shortness of breath, orthopnea, PND or palpitations. RESPIRATORY: Denies cough. GASTROINTESTINAL: Denies abdominal pain, diarrhea, constipation, nausea or vomiting. MUSCULOSKELETAL: Denies myalgias. NEUROLOGIC: Denies numbness, tingling or weakness. ENDOCRINE: Denies fatigue, weight change, polydipsia or polyurina. GENITOURINARY: Denies burning, hematuria or urgency with micturation. HEMATOLOGIC: Denies history of anemia or bleeding. PHYSICAL EXAMINATION Blood pressure 130/64 heart rate 70 afebrile and maintaining oxygen saturation on room air. CONSTITUTIONAL: No apparent distress. HEENT: Head is normocephalic. Pupils are equal, round. Sclerae anicteric. Mucous membranes of the mouth are moist. No JVD. No carotid bruit. CHEST EXAMINATION: Lungs are clear to auscultation. No chest wall tenderness is noted on palpation or with deep breathing. HEART EXAMINATION: Irregular rate and rhythm. S1, S2 heard. Systolic ejection murmur at the left sternal border and apex, no gallops or rub. ABDOMEN: Soft, nontender. Positive bowel sounds. EXTREMITIES: 2+ peripheral pulses, no lower extremity edema and no calf tenderness. NEUROLOGIC EXAMINATION: Patient is awake, alert and oriented x3. ASSESSMENT Chronic persistent atrial fibrillation on long-term anticoagulation Status post vaginal hysterectomy and anterior colporrhaphy Hypertension Dyslipidemia PLAN We will check the cost of eliquis 5 mg BID for thromboembolic protection rather than warfarin. If the cost is reasonable we will resume that tomorrow morning. If not then will resume coumadin at previously ordered dose. Initiate lovenox 100 mg BID today. Follow PT/INR in the morning. Check BMP in the morning. Encourage the use of incentive spirometer when awake. Further recommendations to follow based on clinical course. Thank you kindly for this consultation. Nurse Practitioner note has been reviewed, I agree with a documented findings and plan of care. Patient was seen and examined. Past Medical History Past Medical History: Atrial Fibrillation Additional Past Medical History / Comment(s): urinary leakage History of Any Multi-Drug Resistant Organisms: None Reported Past Surgical History: Appendectomy, Bariatric Surgery, Heart Catheterization, Orthopedic Surgery Additional Past Surgical History / Comment(s): LAP BAND, CARDIOVERSION, ARTHROSCOPY KNEE, EFREN CARPAL TUNNEL, TRIGGER FINGER, LEFT BREAST BX, D&C, 07-14-15 LAP REMOVAL OF LAP BAND AND PORT Past Anesthesia/Blood Transfusion Reactions: No Reported Reaction Additional Past Anesthesia/Blood Transfusion Reaction / Comment(s): no hx blood transfusion Smoking Status: Never smoker - Past Family History Son(s) Family Medical History: Deep Vein Thrombosis (DVT) Medications and Allergies Home Medications Medication Instructions Recorded Confirmed Type Aspirin 81 mg PO DAILY 07/02/16 04/04/20 History Cholecalciferol [Vitamin D3] 1,000 unit PO DAILY 07/02/16 04/04/20 History Famotidine [Pepcid] 20 mg PO HS 07/02/16 04/04/20 History Metoprolol Tartrate [Lopressor] 25 mg PO QAM 07/02/16 04/04/20 History Multivitamins, Thera [Multivitamin] 1 tab PO DAILY 07/02/16 04/04/20 History Warfarin [Coumadin] 7.5 mg PO DAILY 07/02/16 04/04/20 History Atorvastatin [Lipitor] 20 mg PO DAILY 04/04/20 04/04/20 History Calcium Carb/Vitamin D3/Vit K1 1 each PO DAILY 04/04/20 04/04/20 History [Viactiv Soft Chew Tablet] Losartan-Hctz 50-12.5 mg [Hyzaar 1 tab PO BID 04/04/20 04/04/20 History 50-12.5] Oxybutynin Chloride 5 mg PO TID 04/04/20 04/04/20 History Potassium Chloride 10 meq PO TID 04/04/20 04/04/20 History Sertraline [Zoloft] 25 mg PO HS 04/04/20 04/04/20 History dilTIAZem HCL [Diltiazem HCl] 30 mg PO HS 04/04/20 04/04/20 History Apixaban [Eliquis] 5 mg PO BID #60 tab 04/10/20 Rx Allergies Allergy/AdvReac Type Severity Reaction Status Date / Time No Known Allergies Allergy Verified 04/10/20 06:37 Physical Exam Vitals: Vital Signs Temp Pulse Pulse Resp BP Pulse Ox 04/10/20 09:50 70 18 130/64 94 L 04/10/20 09:35 75 18 111/62 100 04/10/20 09:18 66 16 129/61 99 04/10/20 09:04 97.1 F L 78 12 95/60 98 04/10/20 06:44 97.2 F L 79 16 147/80 95 Intake and Output 04/09/20 04/10/20 04/10/20 22:59 06:59 14:59 Intake Total 1050 Output Total 700 Balance 350 Intake: IV 1050 Output: Urine 550 Estimated Blood Loss 150 Other: Weight 97.2 kg 97.2 kg Results Coagulation 04/10/20 Range/Units 06:57 PT 13.0 H (9.0-12.0) sec Current Medications Generic Name Dose Route Start Last Admin Trade Name Freq PRN Reason Stop Dose Admin Acetaminophen 650 mg 04/11/20 09:19 Acetaminophen Tab 325 Mg Tab PO Q6HR PRN Fever and/or Mild Pain Acetaminophen/Codeine Phosphate 1 each 04/10/20 09:15 Acetaminophen-Codeine 300-30mg Tab PO Q4HR PRN Moderate Pain Acetaminophen/Codeine Phosphate 2 each 04/10/20 09:15 04/10/20 11:16 Acetaminophen-Codeine 300-30mg Tab PO 2 each Q6HR PRN Administration Severe Pain Diphenhydramine HCl 25 mg 04/10/20 09:15 Diphenhydramine 50 Mg/Ml 1 Ml Vial IVP Q6HR PRN Itching Hydromorphone HCl 0.5 mg 04/10/20 05:27 04/10/20 09:21 Hydromorphone 0.5 Mg/0.5 Ml Syringe IVP 04/11/20 05:28 0.5 mg Q5M PRN Administration Pain Control Lactated Ringer's 1,000 mls @ 100 mls/hr 04/10/20 09:15 04/10/20 10:30 Lactated Ringers IV 100 mls/hr .Q10H ARCHIE Administration Ibuprofen 600 mg 04/10/20 09:15 Ibuprofen 600 Mg Tab PO Q6HR PRN Mild Discomfort Ketorolac Tromethamine 15 mg 04/10/20 09:15 Ketorolac 15 Mg/Ml 1 Ml Vial IVP 04/13/20 09:16 Q6HR PRN Mild Pain Lidocaine HCl 0.1 ml 04/10/20 05:27 04/10/20 07:04 Lidocaine 1% (10mg/Ml) For Iv Start INTRADERMA 0.1 ml PER PROTOCOL PRN Administration IV Start Metoclopramide HCl 10 mg 04/10/20 09:15 Metoclopramide 5 Mg/Ml 2 Ml Vial IVP Q6HR PRN Nausea or Vomiting Ondansetron HCl 4 mg 04/10/20 09:15 Ondansetron 4 Mg/2 Ml Vial IVP Q8HR PRN Nausea And Vomiting Senna/Docusate Sodium 2 each 04/10/20 21:00 Sennosides-Docusate Sodium 1 Each Tab PO BID ARCHIE Simethicone 80 mg 04/10/20 09:15 Simethicone 80 Mg Chewable PO ACHS PRN Bloating Intake and Output 04/09/20 04/10/20 04/10/20 22:59 06:59 14:59 Intake Total 1050 Output Total 700 Balance 350 Intake: IV 1050 Output: Urine 550 Estimated Blood Loss 150 Other: Weight 97.2 kg 97.2 kg Patient Weight 04/11/20 06:59 Weight 97.2 kg
[2020-04-10] MEDS: ATORVASTATIN 20 MG TAB PO SCH (17:07)
[2020-04-10] MEDS ORDERED: ENOXAPARIN 100 MG/ML SYRINGE SQ SCH (21:00)
[2020-04-10] MEDS: LOSARTAN-HCTZ 50-12.5 MG 1 EACH TAB PO SCH (22:32)
[2020-04-10] MEDS: FAMOTIDINE 20 MG TAB PO SCH (22:33)
[2020-04-10] MEDS: OXYBUTYNIN CHLORIDE 5 MG TAB PO SCH (22:33)
[2020-04-10] MEDS: SERTRALINE 25 MG TAB PO SCH (22:33)
[2020-04-10] MEDS: DILTIAZEM ORAL 30 MG TAB PO SCH (22:33)
[2020-04-10] MEDS: SENNOSIDES-DOCUSATE SODIUM 1 EACH TAB PO SCH (22:33)
[2020-04-10] MEDS: POTASSIUM CHLORIDE ER 10 MEQ TAB.ER.PRT PO SCH (22:54)
[2020-04-11] MEDS: Acetaminophen-Codeine 300-30mg TAB PO PRN (06:11)
[2020-04-11 07:15] LABS: Basophils % (A) 0 %; Eosinophils # (A) 0.1 k/uL (0-0.7); Eosinophils % (A) 1 %; HCT 37.6 % (34.0-46.0); HGB 12.1 gm/dL (11.4-16.0); Lymphocytes # (A) 0.9 k/uL (1.0-4.8); Lymphocytes % (A) 10 %; MCH 33.4 pg (25.0-35.0); MCHC 32.1 g/dL (31.0-37.0); MCV 104.1 fL (80.0-100.0); Macrocytosis Slight; Mean Platelet Volume 7.9; Monocytes # (A) 0.9 k/uL (0-1.0); Monocytes % (A) 9 %; Neutrophils % (A) 78 %; Platelet Count 162 k/uL (150-450); RBC 3.62 m/uL (3.80-5.40); RDW 13.2 % (11.5-15.5)
[2020-04-11 07:22] LABS: INR 1.3 (<1.2)
[2020-04-11 07:29] LABS: Calcium 8.5 mg/dL (8.4-10.2); Potassium 3.5 mmol/L (3.5-5.1)
[2020-04-11] MEDS: LACTATED RINGERS 1,000 ML IV SCH (08:26)
--- NOTE | 2020-04-11 08:35 | P.PN ---
Subjective Progress Note Date: 04/11/20 Principal diagnosis: Status post vaginal hysterectomy with anterior repair The patient denies any significant ongoing bleeding as does the nurse at bedside. She otherwise is reporting almost no discomfort. She has been up and moving about and the vaginal packing and Vasquez catheter had been removed though she has not yet voided. She is hungry and the her diet has been advanced to a heart healthy diet. Objective - Vital Signs Vital signs: Vital Signs Temp 99.4 F 04/11/20 07:44 Pulse 80 04/11/20 07:44 Resp 18 04/11/20 08:00 BP 97/52 04/11/20 07:44 Pulse Ox 93 L 04/11/20 07:44 Intake & Output 04/10/20 04/11/20 04/11/20 18:59 06:59 18:59 Intake Total 2830 800 570 Output Total 1400 1100 Balance 1430 -300 570 Weight 97.2 kg 97 kg Intake: IV 1870 800 10 Invasive Line 1 20 10 Lactated Ringers 1,000 ml 800 800 @ 100 mls/hr IV .Q10H [facility] Rx#:[id number] Oral 960 560 Output: Urine 1250 1100 Uretheral (Vasquez) 300 1100 Estimated Blood Loss 150 Other: Voiding Method Indwelling Catheter Indwelling Catheter - Exam In general, this is a well-developed, well-nourished moderately obese white female in no acute distress. Her abdomen is nondistended, soft, nontender, and without any palpable masses. Her extremities are without any cyanosis, clubbing, or edema and are nontender to palpation bilaterally. The Venodyne's are in place. - Labs CBC & Chem 7: 04/11/20 06:24 04/11/20 06:24 Labs: Abnormal Lab Results - Last 24 Hours (Table) 04/11/20 04/11/20 04/11/20 Range/Units 06:24 06:24 06:24 RBC 3.62 L (3.80-5.40) m/uL MCV 104.1 H (80.0-100.0) fL Lymphocytes # 0.9 L (1.0-4.8) k/uL PT 13.0 H (9.0-12.0) sec INR 1.3 H (<1.2) Sodium 135 L (137-145) mmol/L Carbon Dioxide 31 H (22-30) mmol/L Glucose 123 H (74-99) mg/dL Microbiology - Last 24 Hours (Table) 04/10/20 06:32 Urine Culture - Preliminary Urine,Voided Assessment and Plan (1) Cystocele Current Visit: Yes Status: Acute Code(s): JUL3234 - SNOMED Code(s): 075976980 (2) Uterine prolapse Current Visit: Yes Status: Acute Code(s): N81.4 - UTEROVAGINAL PROLAPSE, UNSPECIFIED SNOMED Code(s): 18607978 (3) Atrial fibrillation Current Visit: Yes Status: Chronic Code(s): I48.91 - UNSPECIFIED ATRIAL FIBRILLATION SNOMED Code(s): 87736713 Plan: The patient history doing very well postoperatively. As long as she tolerates regular diet and is able to void more than 50% of her bladder volume, I see no contraindication to discharging her later today pending input from both general medicine and cardiology. She is to begin full anticoagulation today in labor fashion cardiology recommends. It appears that she is unable to afford Eloquis and may need to be returned to Coumadin. I have strongly encouraged her to ambulate in the hallways at least 4 times daily. She will be reevaluated later this afternoon for possible discharge.
[2020-04-11] MEDS ORDERED: ASPIRIN 81 MG PO SCH (09:00)
[2020-04-11] MEDS ORDERED: RIVAROXABAN 20 MG TAB PO STA (09:16)
[2020-04-11] MEDS ORDERED: ACETAMINOPHEN TAB 325 MG TAB PO PRN (09:19)
[2020-04-11] MEDS ORDERED: WARFARIN 7.5 MG TAB PO SCH ×2 (09:30→18:00)
[2020-04-11] MEDS: MULTIVITAMINS, THERA 1 EACH TAB PO SCH (09:31)
[2020-04-11] MEDS: NON FORMULARY DRUG (Calcium Carb/Vitamin D3/Vit K1 [Viactiv 650 Mg-12.5 Mcg Chew] 1 EACH T PO SCH (09:31)
[2020-04-11] MEDS: CHOLECALCIFEROL 1,000 UNIT TAB PO SCH (09:31)
[2020-04-11] MEDS: METOPROLOL TARTRATE 25 MG TAB PO SCH (09:46)
[2020-04-11] MEDS: LOSARTAN-HCTZ 50-12.5 MG 1 EACH TAB PO SCH ×2 (09:46→22:12)
[2020-04-11] MEDS: ATORVASTATIN 20 MG TAB PO SCH (09:46)
[2020-04-11] MEDS: OXYBUTYNIN CHLORIDE 5 MG TAB PO SCH ×3 (09:46→22:13)
[2020-04-11] MEDS: SENNOSIDES-DOCUSATE SODIUM 1 EACH TAB PO SCH ×2 (09:47→22:11)
[2020-04-11] MEDS: POTASSIUM CHLORIDE ER 10 MEQ TAB.ER.PRT PO SCH ×3 (09:47→22:15)
[2020-04-11] MEDS: ENOXAPARIN 100 MG/ML SYRINGE SQ SCH ×2 (09:55→22:14)
--- NOTE | 2020-04-11 11:18 | P.CONS ---
History of Present Illness - Reason for Consult Consult date: 04/11/20 ( ) medical managment Requesting physician: Rowdy Irving - History of Present Illness This is a 80 year old female patient of Dr. roque who presented to for scheduled hysterectomy and anterior colporrhaphy with Dr. Ennis. Patient is currently post op day 1. Patient has a past medical history of Atrial fibrillation in which she is maintained on coumadin, lap band, cardioversion and carpal tunnel syndrome. Patient is currently resting comfortably in chair. Patient denies any chest pain or shortness of breath. Denies any nausea vomiting or diarrhea. per nursing staff IDC has been removed and patient to void prior to d/c. Cardiology services are following and plans to resume coumadin for d/c currently bridging with xarelato. Review of Systems Please refer to HPI Past Medical History Past Medical History: Atrial Fibrillation Additional Past Medical History / Comment(s): urinary leakage History of Any Multi-Drug Resistant Organisms: None Reported Past Surgical History: Appendectomy, Bariatric Surgery, Heart Catheterization, Orthopedic Surgery Additional Past Surgical History / Comment(s): LAP BAND, CARDIOVERSION, ARTHROSCOPY KNEE, EFREN CARPAL TUNNEL, TRIGGER FINGER, LEFT BREAST BX, D&C, 07-14-15 LAP REMOVAL OF LAP BAND AND PORT Past Anesthesia/Blood Transfusion Reactions: No Reported Reaction Additional Past Anesthesia/Blood Transfusion Reaction / Comm: no hx blood transfusion Smoking Status: Never smoker - Past Family History Son(s) Family Medical History: Deep Vein Thrombosis (DVT) Medications and Allergies Home Medications Medication Instructions Recorded Confirmed Type Cholecalciferol [Vitamin D3] 1,000 unit PO DAILY 07/02/16 04/04/20 History Famotidine [Pepcid] 20 mg PO HS 07/02/16 04/04/20 History Metoprolol Tartrate [Lopressor] 25 mg PO QAM 07/02/16 04/04/20 History Multivitamins, Thera [Multivitamin] 1 tab PO DAILY 07/02/16 04/04/20 History Warfarin [Coumadin] 7.5 mg PO DAILY 07/02/16 04/04/20 History Atorvastatin [Lipitor] 20 mg PO DAILY 04/04/20 04/04/20 History Calcium Carb/Vitamin D3/Vit K1 1 each PO DAILY 04/04/20 04/04/20 History [Viactiv Soft Chew Tablet] Losartan-Hctz 50-12.5 mg [Hyzaar 1 tab PO BID 04/04/20 04/04/20 History 50-12.5] Oxybutynin Chloride 5 mg PO TID 04/04/20 04/04/20 History Potassium Chloride 10 meq PO TID 04/04/20 04/04/20 History Sertraline [Zoloft] 25 mg PO HS 04/04/20 04/04/20 History dilTIAZem HCL [Diltiazem HCl] 30 mg PO HS 04/04/20 04/04/20 History Allergies Allergy/AdvReac Type Severity Reaction Status Date / Time No Known Allergies Allergy Verified 04/10/20 06:37 Physical Exam Vitals: Vital Signs Temp Pulse Resp BP Pulse Ox 04/11/20 08:00 18 04/11/20 07:44 99.4 F 80 18 97/52 93 L 04/11/20 04:00 98.7 F 72 16 100/61 96 04/11/20 00:00 98.0 F 65 18 100/64 95 04/10/20 20:36 98.2 F 77 18 116/78 04/10/20 20:00 86 18 04/10/20 19:44 99.1 F 86 18 120/70 93 L 04/10/20 16:49 97.9 F 87 17 129/73 95 04/10/20 12:00 61 04/10/20 10:30 97.5 F L 61 16 133/57 98 04/10/20 09:50 70 18 130/64 94 L Intake and Output 04/10/20 04/11/20 04/11/20 22:59 06:59 14:59 Intake Total 1470 800 570 Output Total 400 1100 Balance 1070 -300 570 Intake: IV 810 800 10 Invasive Line 1 10 10 Lactated Ringers 1,000 ml 800 800 @ 100 mls/hr IV .Q10H [facility] Rx#:[id number] Oral 660 560 Output: Urine 400 1100 Uretheral (Vasquez) 1100 Other: Voiding Method Indwelling Catheter Weight 97 kg In general patient is alert and oriented 3 HEENT head normocephalic and atraumatic Neck is supple no JVD no goiter no lymphadenopathy Chest exam reveals no rhonchi no wheezing Cardiac exam reveals irregular heart sounds no murmurs Abdomen is soft nontender no organomegaly was normal bowel sounds Extremity exam no edema. Neurological examination reveals no gross focal deficit Results CBC & Chem 7: 04/11/20 06:24 04/11/20 06:24 Labs: Abnormal Lab Results - Last 24 Hours (Table) 04/11/20 04/11/20 04/11/20 Range/Units 06:24 06:24 06:24 RBC 3.62 L (3.80-5.40) m/uL MCV 104.1 H (80.0-100.0) fL Lymphocytes # 0.9 L (1.0-4.8) k/uL PT 13.0 H (9.0-12.0) sec INR 1.3 H (<1.2) Sodium 135 L (137-145) mmol/L Carbon Dioxide 31 H (22-30) mmol/L Glucose 123 H (74-99) mg/dL Microbiology - Last 24 Hours (Table) 04/10/20 06:32 Urine Culture - Preliminary Urine,Voided Assessment and Plan Assessment: 1. s/p vaginal hysterectomy and anterior repair with Dr. Ennis for uterine prolapse and cytocele. Patient is currently post op day 1. 2. Urinary tract infection. urine culture ordered. Patient will be d/c on ceftin for 1 week 3. 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 Per cardiology when to resume coumadin dose. currently bridging with xarelto 4. essential hypertension 5. hyperlipidemia. maintained on statin Thank you for this consultation we will continue to follow patient closely throughout stay Time with Patient: Greater than 30
--- NOTE | 2020-04-11 12:43 | P.PN ---
Subjective HISTORY OF PRESENTING ILLNESS She is seen and examined sitting up in the chair in no acute distress. She has been up ambulating around the room without difficulty. She has no shortness of breath, chest pain, dizziness or palpitations. Blood pressure 97/52 afebrile maintaining oxygen saturation on room air. She continued to have minimal bright red vaginal bleeding as expected. Laboratory data reviewed, WBC 9.0, hemoglobin 12.1, platelets 162, INR 1.3, sodium 135, potassium 3.5 and creatinine 0.79. Currently maintained on aspirin 81 mg daily, atorvastatin 20 mg daily, diltiazem 30 mg at bedtime, Lovenox 100 mg subcu twice a day, losartan/HCTZ 50/12.5 mg twice a day and metoprolol 25 mg in the morning. PHYSICAL EXAMINATION CONSTITUTIONAL: No apparent distress. HEENT: Head is normocephalic. Pupils are equal, round. Sclerae anicteric. Mucous membranes of the mouth are moist. No JVD. No carotid bruit. CHEST EXAMINATION: Lungs are clear to auscultation. No chest wall tenderness is noted on palpation or with deep breathing. HEART EXAMINATION: Irregular rate and rhythm. S1, S2 heard. Systolic ejection murmur at the left sternal border and apex, no gallops or rub. EXTREMITIES: 2+ peripheral pulses, no lower extremity edema and no calf tenderness. ASSESSMENT Chronic persistent atrial fibrillation on long-term anticoagulation Status post vaginal hysterectomy and anterior colporrhaphy Hypertension Dyslipidemia PLAN Eliquis and Xarelto are unaffordable for the patient. We will continue with warfarin and lovenox bridging. Continue to assess vaginal bleeding and resume warfarin tonight if stable. Repeat CBC in the morning along with PT/INR. We will continue to follow and make recommendations accordingly. Nurse Practitioner note has been reviewed, I agree with a documented findings and plan of care. Patient was seen and examined. Objective - Vital Signs Vital signs: Vital Signs Temp 99.4 F 04/11/20 07:44 Pulse 80 04/11/20 07:44 Resp 18 04/11/20 08:00 BP 97/52 04/11/20 07:44 Pulse Ox 93 L 04/11/20 07:44 Intake & Output 04/10/20 04/11/20 04/11/20 18:59 06:59 18:59 Intake Total 2830 800 570 Output Total 1400 1100 Balance 1430 -300 570 Weight 97.2 kg 97 kg Intake: IV 1870 800 10 Invasive Line 1 20 10 Lactated Ringers 1,000 ml 800 800 @ 100 mls/hr IV .Q10H [facility] Rx#:[id number] Oral 960 560 Output: Urine 1250 1100 Uretheral (Vasquez) 300 1100 Estimated Blood Loss 150 Other: Voiding Method Indwelling Catheter Indwelling Catheter - Labs CBC & Chem 7: 04/11/20 06:24 04/11/20 06:24 Labs: Abnormal Lab Results - Last 24 Hours (Table) 04/11/20 04/11/20 04/11/20 Range/Units 06:24 06:24 06:24 RBC 3.62 L (3.80-5.40) m/uL MCV 104.1 H (80.0-100.0) fL Lymphocytes # 0.9 L (1.0-4.8) k/uL PT 13.0 H (9.0-12.0) sec INR 1.3 H (<1.2) Sodium 135 L (137-145) mmol/L Carbon Dioxide 31 H (22-30) mmol/L Glucose 123 H (74-99) mg/dL Microbiology - Last 24 Hours (Table) 04/10/20 06:32 Urine Culture - Preliminary Urine,Voided
[2020-04-11] MEDS: SERTRALINE 25 MG TAB PO SCH (22:12)
[2020-04-11] MEDS: DILTIAZEM ORAL 30 MG TAB PO SCH (22:13)
[2020-04-11] MEDS: FAMOTIDINE 20 MG TAB PO SCH (22:25)
[2020-04-12] MEDS: Acetaminophen-Codeine 300-30mg TAB PO PRN (05:33)
[2020-04-12 09:01] LABS: HCT 38.5 % (34.0-46.0); HGB 12.7 gm/dL (11.4-16.0); MCH 33.8 pg (25.0-35.0); MCHC 32.9 g/dL (31.0-37.0); MCV 102.8 fL (80.0-100.0); Macrocytosis Slight; Mean Platelet Volume 9.2; Platelet Count 200 k/uL (150-450); RBC 3.74 m/uL (3.80-5.40); RDW 12.5 % (11.5-15.5); WBC 12.7 k/uL (3.8-10.6)
[2020-04-12 09:19] LABS: INR 1.2 (<1.2); Prothrombin Time 12.2 sec (9.0-12.0)
[2020-04-12 09:39] VITALS: RESP 18; TEMP 98.5
[2020-04-12] MEDS: CHOLECALCIFEROL 1,000 UNIT TAB PO SCH (09:52)
[2020-04-12] MEDS: SENNOSIDES-DOCUSATE SODIUM 1 EACH TAB PO SCH (09:52)
[2020-04-12] MEDS: MULTIVITAMINS, THERA 1 EACH TAB PO SCH (09:52)
[2020-04-12] MEDS: POTASSIUM CHLORIDE ER 10 MEQ TAB.ER.PRT PO SCH ×2 (09:52→17:00)
[2020-04-12] MEDS: ATORVASTATIN 20 MG TAB PO SCH (09:52)
[2020-04-12] MEDS: OXYBUTYNIN CHLORIDE 5 MG TAB PO SCH ×2 (09:52→17:00)
[2020-04-12] MEDS: ENOXAPARIN 100 MG/ML SYRINGE SQ SCH (09:53)
[2020-04-12] MEDS: LOSARTAN-HCTZ 50-12.5 MG 1 EACH TAB PO SCH (09:53)
[2020-04-12] MEDS: METOPROLOL TARTRATE 25 MG TAB PO SCH (09:58)
[2020-04-12] MEDS: NON FORMULARY DRUG (Calcium Carb/Vitamin D3/Vit K1 [Viactiv 650 Mg-12.5 Mcg Chew] 1 EACH T PO SCH (09:59)
[2020-04-12 11:36] VITALS: BP 90/62; PULSE 75
--- NOTE | 2020-04-12 12:28 | P.PN ---
Subjective HISTORY OF PRESENTING ILLNESS She is seen and examined sitting up in the chair in no acute distress. She has been up ambulating around the room without difficulty. She has no shortness of breath, chest pain, dizziness or palpitations. Blood pressure 90/62 heart rate 74 afebrile maintaining oxygen saturation on room air. Laboratory data reviewed , WBC 12.7, hemoglobin 12.7, platelets 200 and INR 1.2. PHYSICAL EXAMINATION CONSTITUTIONAL: No apparent distress. HEENT: Head is normocephalic. Pupils are equal, round. Sclerae anicteric. Mucous membranes of the mouth are moist. No JVD. No carotid bruit. CHEST EXAMINATION: Lungs are clear to auscultation. No chest wall tenderness is noted on palpation or with deep breathing. HEART EXAMINATION: Irregular rate and rhythm. S1, S2 heard. Systolic ejection murmur at the left sternal border and apex, no gallops or rub. EXTREMITIES: 2+ peripheral pulses, no lower extremity edema and no calf ten derness. ASSESSMENT Chronic persistent atrial fibrillation on long-term anticoagulation Status post vaginal hysterectomy and anterior colporrhaphy Hypertension Dyslipidemia PLAN Decrease hyzaar to daily rather than BID as her blood pressures have been running low. Continue coumadin upon discharge. Follow up PT/INR in 3 days. Stable for discharge from a cardiac perspective. Nurse Practitioner note has been reviewed, I agree with a documented findings and plan of care. Patient was seen and examined. Objective - Vital Signs Vital signs: Vital Signs Temp 98.5 F 04/12/20 11:31 Pulse 75 04/12/20 11:31 Resp 18 04/12/20 11:31 BP 90/62 04/12/20 11:31 Pulse Ox 93 L 04/12/20 11:31 Intake & Output 04/11/20 04/12/20 04/12/20 18:59 06:59 18:59 Intake Total 1790 420 Output Total 725 300 200 Balance 1065 -300 220 Weight 98.2 kg Intake: IV 30 Invasive Line 1 30 Oral 1760 420 Output: Urine 475 300 200 Post Void Residual 250 Other: Voiding Method Toilet Toilet Toilet Diaper Diaper - Labs CBC & Chem 7: 04/12/20 07:23 04/11/20 06:24 Labs: Abnormal Lab Results - Last 24 Hours (Table) 04/12/20 04/12/20 Range/Units 07:23 07:23 WBC 12.7 H (3.8-10.6) k/uL RBC 3.74 L (3.80-5.40) m/uL MCV 102.8 H (80.0-100.0) fL PT 12.2 H (9.0-12.0) sec INR 1.2 H (<1.2) Microbiology - Last 24 Hours (Table) 04/10/20 06:32 Urine Culture - Final Urine,Voided Klebsiella pneumoniae Serratia marcescens
--- NOTE | 2020-04-12 13:47 | P.DS ---
Providers Expected date of discharge: 04/12/20 Attending physician: Rowdy Irving Consults: 04/10/20 09:15 Consult Physician Routine Consulting Provider: Kedar Wild Consult Reason/Comments: Known patient, atrial fibrillation Do you want consulting provider notified?: Yes 04/10/20 09:29 Consult Physician Routine Consulting Provider: Lashawn Guerrero Consult Reason/Comments: Gen. medical consultation, patient of Dr. James Do you want consulting provider notified?: Already Contacted Primary care physician: Lyric James - Discharge Diagnosis(es) (1) Cystocele Current Visit: Yes Status: Acute (2) Uterine prolapse Current Visit: Yes Status: Acute (3) Atrial fibrillation Current Visit: Yes Status: Chronic Hospital Course: The patient is a 80-year-old 4 para 4004 who presented to the office in consultation regarding pelvic organ prolapse. She has had this present for quite some time but, over the last number of months has had increasing discomfort as well as feeling that something is protruding from vagina. Examination has borne out that she had grade 3-3+ uterine prolapse with a grade 3 cystocele. She additionally does have issues with urinary incontinence and frequency for which she is on Ditropan. Of significance, she does have a known history of atrial fibrillation for which she is on chronic anticoagulation with Coumadin. This was stopped approximately 4 days in advance of surgery. She was counseled regarding her options and taken to the operating room for vaginal hysterectomy with anterior colporrhaphy which was performed in an uncomplicated fashion. She was started on Lovenox 100 mg twice daily beginning the evening of day of surgery. Full anticoagulation with Coumadin was begun the following evening on postoperative day #1. Her INR remains currently at 1.2 and was at 1.3 yesterday and prior to surgery. Cardiology has been involved with the patient and has given permission for discharge. As result, she has been deemed stable for discharge on post operative day #2 and was discharged home to follow- up in the office in 2 weeks for recheck in 6 weeks routinely. Resumption of her medical management with Dr. James will be arranged by Dr. Guerrero along with her appropriate medical prescriptions. She has been post operatively and post surgically stable for discharge since yesterday. She at this time is requiring no pain medications and therefore is deemed stable for discharge on postoperative day #2 to follow up as noted above. Discharge medications included all of her home medications which are well documented in the chart. Discharge hemoglobin and hematocrit were 12.7 and 38.5 respectively. Procedures: #1. Vaginal hysterectomy #2. Anterior colporrhaphy #3. Cardiology consultation #4. Internal medicine consultation for medical management Patient Condition at Discharge: Stable Plan - Discharge Summary Discharge Rx Participant: No New Discharge Prescriptions: New Cefuroxime Axetil [Ceftin] 500 mg PO BID 7 Days #14 tab Continue Warfarin [Coumadin] 7.5 mg PO DAILY Discontinued Aspirin 81 mg PO DAILY No Action Metoprolol Tartrate [Lopressor] 25 mg PO QAM Famotidine [Pepcid] 20 mg PO HS Cholecalciferol [Vitamin D3] 1,000 unit PO DAILY Multivitamins, Thera [Multivitamin] 1 tab PO DAILY Oxybutynin Chloride 5 mg PO TID Sertraline [Zoloft] 25 mg PO HS dilTIAZem HCL [Diltiazem HCl] 30 mg PO HS Atorvastatin [Lipitor] 20 mg PO DAILY Potassium Chloride 10 meq PO TID Losartan-Hctz 50-12.5 mg [Hyzaar 50-12.5] 1 tab PO BID Calcium Carb/Vitamin D3/Vit K1 [Viactiv Soft Chew Tablet] 1 each PO DAILY Discharge Medication List Cholecalciferol [Vitamin D3] 1,000 unit PO DAILY 07/02/16 [History] Famotidine [Pepcid] 20 mg PO HS 07/02/16 [History] Metoprolol Tartrate [Lopressor] 25 mg PO QAM 07/02/16 [History] Multivitamins, Thera [Multivitamin] 1 tab PO DAILY 07/02/16 [History] Warfarin [Coumadin] 7.5 mg PO DAILY 07/02/16 [History] Atorvastatin [Lipitor] 20 mg PO DAILY 04/04/20 [History] Calcium Carb/Vitamin D3/Vit K1 [Viactiv Soft Chew Tablet] 1 each PO DAILY 04/04/20 [History] Losartan-Hctz 50-12.5 mg [Hyzaar 50-12.5] 1 tab PO BID 04/04/20 [History] Oxybutynin Chloride 5 mg PO TID 04/04/20 [History] Potassium Chloride 10 meq PO TID 04/04/20 [History] Sertraline [Zoloft] 25 mg PO HS 04/04/20 [History] dilTIAZem HCL [Diltiazem HCl] 30 mg PO HS 04/04/20 [History] Cefuroxime Axetil [Ceftin] 500 mg PO BID 7 Days #14 tab 04/11/20 [Rx] Follow up Appointment(s)/Referral(s): Hari Yen MD [STAFF PHYSICIAN] - 04/20/20 2:30 pm (Thursday) Rowdy Irving MD [STAFF PHYSICIAN] - 2 Weeks Ambulatory/Diagnostic Orders: Prothrombin Time INR [LAB.AMB] Time Frame: 3 Days, Location: None Selected Discharge Disposition: HOME SELF-CARE
[2020-04-12] MEDS ORDERED: INFLUENZA VACCINE (6 MOS+) 60 MCG/0.5 ML SYRINGE IM ONE (16:28)
--- NOTE | 2020-04-12 17:28 | P.PN ---
Subjective Progress Note Date: 04/12/20 This is a 80 year old female patient of Dr. roque who presented to for scheduled hysterectomy and anterior colporrhaphy with Dr. Ennis. Patient is currently post op day 1. Patient has a past medical history of Atrial fibrillation in which she is maintained on coumadin, lap band, cardioversion and carpal tunnel syndrome. Patient is currently resting comfortably in chair. Patient denies any chest pain or shortness of breath. Denies any nausea vomiting or diarrhea. per nursing staff IDC has been removed and patient to void prior to d/c. Cardiology services are following and plans to resume coumadin for d/c currently bridging with xarelato. On 04/12/2020 patient was seen and examined on the medical floor he is alert and oriented 3 in no apparent distress there is no fever or chills no headache or dizziness no chest pain no shortness of breath no cough no nausea or vomiting no abdominal pain no diarrhea no blood in the stools no burning with urination no frequency or urgency no hematuria. Patient is scheduled for discharge today by CIRCULATION ASSISTANT. There is no medical contraindication for discharge. Objective - Vital Signs Vital signs: Vital Signs Temp 98.5 F 04/12/20 11:31 Pulse 75 04/12/20 11:31 Resp 18 04/12/20 11:31 BP 90/62 04/12/20 11:31 Pulse Ox 93 L 04/12/20 11:31 Intake & Output 04/11/20 04/12/20 04/12/20 18:59 06:59 18:59 Intake Total 1790 720 Output Total 725 300 200 Balance 1065 -300 520 Weight 98.2 kg Intake: IV 30 Invasive Line 1 30 Oral 1760 720 Output: Urine 475 300 200 Post Void Residual 250 Other: Voiding Method Toilet Toilet Toilet Diaper Diaper - Exam In general patient is alert and oriented 3 HEENT head normocephalic and atraumatic Neck is supple no JVD no goiter no lymphadenopathy Chest exam reveals no rhonchi no wheezing Cardiac exam reveals irregular heart sounds no murmurs Abdomen is soft nontender no organomegaly was normal bowel sounds Extremity exam no edema. Neurological examination reveals no gross focal deficit - Labs CBC & Chem 7: 04/12/20 07:23 04/11/20 06:24 Labs: Abnormal Lab Results - Last 24 Hours (Table) 04/12/20 04/12/20 Range/Units 07:23 07:23 WBC 12.7 H (3.8-10.6) k/uL RBC 3.74 L (3.80-5.40) m/uL MCV 102.8 H (80.0-100.0) fL PT 12.2 H (9.0-12.0) sec INR 1.2 H (<1.2) Microbiology - Last 24 Hours (Table) 04/10/20 06:32 Urine Culture - Final Urine,Voided Klebsiella pneumoniae Serratia marcescens Assessment and Plan Assessment: 1. s/p vaginal hysterectomy and anterior repair with Dr. Ennis for uterine prolapse and cytocele. Patient is currently post op day 1. 2. Urinary tract infection. urine culture ordered. Patient will be d/c on ceftin for 1 week 3. 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 Per card iology when to resume coumadin dose. currently bridging with xarelto 4. essential hypertension 5. hyperlipidemia. maintained on statin Thank you for this consultation we will continue to follow patient closely throughout stay
[2020-04-13] MEDS ORDERED: LOSARTAN-HCTZ 50-12.5 MG 1 EACH TAB PO SCH (09:00)
== END 2020-04-12 17:34 | disposition home or self-care (01) ==
LOC: OR 06:12 → 3SCARD 08:49 → OR 04-12 17:34
PROVIDERS: ATTEND Obstetrics & Gynecology
DX: N81.3 Complete uterovaginal prolapse (principal); D25.1 Intramural leiomyoma of uterus; I48.21 Permanent atrial fibrillation; I10 Essential (primary) hypertension; F41.9 Anxiety disorder, unspecified; F32.9 Major depressive disorder, single episode, unspecified; I25.10 Atherosclerotic heart disease of native coronary artery without angina pectoris; I42.9 Cardiomyopathy, unspecified; G43.909 Migraine, unspecified, not intractable, without status migrainosus; E66.9 Obesity, unspecified; E78.5 Hyperlipidemia, unspecified; Z23 Encounter for immunization; Z79.01 Long term (current) use of anticoagulants; Z98.84 Bariatric surgery status; Z98.890 Other specified postprocedural states; Z82.49 Family history of ischemic heart disease and other diseases of the circulatory system; Z79.82 Long term (current) use of aspirin; Z79.899 Other long term (current) drug therapy; Z87.11 Personal history of peptic ulcer disease; Z88.1 Allergy status to other antibiotic agents; Z88.8 Allergy status to other drugs, medicaments and biological substances; Z68.38 Body mass index [BMI] 38.0-38.9, adult
CPT/HCPCS: 58260; 57240; 80048; 85025; 85027; 85610 ×3; 81001; 88307; 87086; 87077; 87186; 90686; G0008; J2250; J0690; J2405; J2001; J1650 ×3; J0696; J3010; J0330; J2704; J1170; 86850; 86900; 86901